=== PATIENT | female | born 1965 | race Two or more races ===

== ENCOUNTER → 2020-05-10 07:17 | Outpatient (CLI) | payer OTHER | END | disposition home or self-care (01) | LOC: LAB 07:17 | PROVIDERS: ATTEND Internal Medicine | DX: E03.8 Other specified hypothyroidism (principal); E78.00 Pure hypercholesterolemia, unspecified; R31.29 Other microscopic hematuria; E11.9 Type 2 diabetes mellitus without complications ==

== ENCOUNTER 2020-06-07 09:47 | Outpatient (CLI) | payer OTHER | END 2020-06-07 09:49 | disposition home or self-care (01) | LOC: LAB 09:47 | PROVIDERS: ATTEND Obstetrics & Gynecology Gynecology | DX: Z12.11 Encounter for screening for malignant neoplasm of colon (principal); K62.5 Hemorrhage of anus and rectum; Z12.4 Encounter for screening for malignant neoplasm of cervix ==

== ENCOUNTER → 2020-06-16 | Outpatient (CLI) | payer OTHER | END | disposition home or self-care (01) | LOC: MRI 08:15 | PROVIDERS: ATTEND Internal Medicine | DX: M75.122 Complete rotator cuff tear or rupture of left shoulder, not specified as traumatic (principal); M75.102 Unspecified rotator cuff tear or rupture of left shoulder, not specified as traumatic | CPT/HCPCS: 73221 ==

== ENCOUNTER → 2020-09-06 07:18 | Outpatient (CLI) | payer OTHER | END | disposition home or self-care (01) | LOC: LAB 07:18 | DX: I11.9 Hypertensive heart disease without heart failure (principal); R68.89 Other general symptoms and signs; E78.00 Pure hypercholesterolemia, unspecified; R31.9 Hematuria, unspecified; E03.8 Other specified hypothyroidism; E11.9 Type 2 diabetes mellitus without complications ==

== ENCOUNTER 2021-01-10 07:15 | Outpatient (CLI) | payer OTHER | END 2021-01-10 07:19 | disposition home or self-care (01) | LOC: LAB 07:15 | PROVIDERS: ATTEND Internal Medicine | DX: R68.89 Other general symptoms and signs (principal); I11.9 Hypertensive heart disease without heart failure; E78.01 Familial hypercholesterolemia; R31.29 Other microscopic hematuria; E03.8 Other specified hypothyroidism; E11.9 Type 2 diabetes mellitus without complications ==

== ENCOUNTER → 2021-02-02 07:42 | Outpatient (CLI) | payer OTHER | END | disposition home or self-care (01) | LOC: LAB 07:42 | PROVIDERS: ATTEND Internal Medicine | DX: M32.0 Drug-induced systemic lupus erythematosus (principal); M05.8A Other rheumatoid arthritis with rheumatoid factor of other specified site ==

== ENCOUNTER 2021-03-12 07:27 | Outpatient (CLI) | payer OTHER | END 2021-03-12 07:42 | disposition home or self-care (01) | LOC: RAD 07:27 | PROVIDERS: ATTEND Podiatrist | DX: M20.41 Other hammer toe(s) (acquired), right foot (principal); M25.561 Pain in right knee ==

== ENCOUNTER 2021-04-11 07:18 | Outpatient (CLI) | payer OTHER | END 2021-04-11 07:21 | disposition home or self-care (01) | LOC: LAB 07:18 | PROVIDERS: ATTEND Allergy & Immunology | DX: E11.65 Type 2 diabetes mellitus with hyperglycemia (principal) ==

== ENCOUNTER 2021-06-13 07:53 | Outpatient (CLI) | payer OTHER | END 2021-06-13 07:59 | disposition home or self-care (01) | LOC: LAB 07:53 | PROVIDERS: ATTEND Internal Medicine | DX: R68.89 Other general symptoms and signs (principal); I11.9 Hypertensive heart disease without heart failure; E78.00 Pure hypercholesterolemia, unspecified; R31.9 Hematuria, unspecified; E03.9 Hypothyroidism, unspecified; E11.9 Type 2 diabetes mellitus without complications ==